=== PATIENT | male | born 1980 | race Caucasian/White ===

== ENCOUNTER → 2021-10-02 | Day surgery (SDC) | payer OTHER ==
[~2021-10-02] VITALS: Ht 182.9 cm; Wt 249.5 kg
[~2021-10-02] MED LIST: LISINOPRIL-HCT1 EAC2 PO; VITAMIN D350 MC3 PO
== END | disposition home or self-care (01) ==
LOC: FAS 08:27
DX: D12.4 Benign neoplasm of descending colon (principal); D64.9 Anemia, unspecified; I10 Essential (primary) hypertension; G47.33 Obstructive sleep apnea (adult) (pediatric); Z99.89 Dependence on other enabling machines and devices; Z79.899 Other long term (current) drug therapy; Z72.89 Other problems related to lifestyle
CPT/HCPCS: J2250; J2704; J7120